=== PATIENT | male | born 1960 | race American Indian/Alaskan Native ===

== ENCOUNTER 2018-06-06 11:38 | Emergency (ER) | payer SELFPAY ==
--- NOTE | 2018-06-06 12:37 | Emergency Department Report ---
Chief Complaint: Extremity Injury, Lower Stated Complaint: (L) LEG PAIN/HBP Time Seen by Provider: 06/06/18 12:26 - HPI History of Present Illness: 58 yo AA M presents with b/l knee pain and pain to the left pinky toe, along with some swelling and redness to these areas. The patient thinks he has gout but has no history of this, just a pmhx of HTN. Has PCP at [facility] . No recent travel. Has not taken anything for symptoms prior to presentation. - ROS Review of Systems: Positive for redness and swelling and pain of the b/l knees and left pinky toe Negative for fever, N/V - Exam Vital Signs: Vital Signs 06/06/18 11:42 Temperature 98.9 F Pulse Rate 74 Respiratory 16 Rate Blood Pressure 155/93 O2 Sat by Pulse 100 Oximetry Physical Exam: B/l anterior knee swelling and redness with L > R. TTP to the b/l knees. Heart and lungs normal to auscultation. MSE screening note: Focused history and physical exam performed. Due to findings the following was ordered: Ordered CBC, BMP, Uric acid and b/l knee X-ray ED Disposition for MSE Condition: Stable Referrals: PRIMARY CARE, [Primary Care Provider] - 3-5 Days
[2018-06-06 13:11] LABS: Basophils # (Auto) 0.1 K/mm3 (0.0-0.1); Basophils % (Auto) 0.7 % (0.0-1.8); Eosinophils # (Auto) 0.1 K/mm3 (0.0-0.4); Eosinophils % (Auto) 0.7 % (0.0-4.3); Hemoglobin 14.1 gm/dl (11.8-15.2); Lymphocytes # (Auto) 1.8 K/mm3 (1.2-5.4); Lymphocytes % (Auto) 21.9 % (13.4-35.0); Mean Corpuscular HGB Conc 34 % (32-34); Mean Corpuscular Hemoglobin 32 pg (28-32); Mean Corpuscular Volume 95 fl (84-94); Monocytes # (Auto) 0.6 K/mm3 (0.0-0.8); Monocytes % (Auto) 7.8 % (0.0-7.3); Platelet Count 281 K/mm3 (140-440); Red Blood Count 4.33 M/mm3 (3.65-5.03); Red Cell Distribution Width 13.6 % (13.2-15.2)
[2018-06-06 14:14] LABS: BUN/Creatinine Ratio 13; Blood Urea Nitrogen 13 mg/dL (9-20); Calcium 9.5 mg/dL (8.4-10.2); Hemolysis Index 772; Uric Acid 9.1 mg/dL (3.5-7.6)
--- NOTE | 2018-06-06 14:24 | XRay Report ---
BILATERAL KNEES, 3 VIEWS History: Bilateral knee pain. Findings: Mild osteoarthritic changes are identified throughout both knees. There is no evidence for fracture, bone lesion or large joint effusion. The soft tissues are unremarkable. Impression: Mild osteoarthritis.
[2018-06-06] MEDS ORDERED: TORADOL IM ONE (15:08)
[2018-06-06] MEDS ORDERED: DECADRON IM ONE (15:08)
--- NOTE | 2018-06-06 15:16 | Emergency Department Report ---
ED Lower Extremity HPI - General Chief Complaint: Extremity Injury, Lower Stated Complaint: (L) LEG PAIN/HBP Time Seen by Provider: 06/06/18 12:26 Source: patient Mode of arrival: Ambulatory Limitations: No Limitations - History of Present Illness Initial Comments: This is a 58-year-old -[place] male who presents with bilateral knee pain for one week. Patient states pain started on the right knee and it improved slightly a few days ago. Patient states left knee pain is 8 out of 10 on pain scale and worse with ambulating and movement. He is now also having pain in left pinky toe with mild swelling and redness to these areas. Patient has a history of hypertension and hyperlipidemia. history of gout but admits to family history. Patient states he has been eating increased amount of seafood and drinking. Over the past 2 weeks and noticed symptoms were aggravated since then. Denies fevers, numbness or tingling, any recent injury. MD Complaint: knee injury (bilateral knee pain) Onset/Timin -: week(s) Injury: Knee: Left, Foot: Right (right fifth toe pain) Type of Injury: unknown Place: home Severity: moderate Severity scale (0 -10): 6 Improves With: nothing Worsens With: weight bearing, movement Associated Symptoms: swelling, able to partially bear weight, ambulatory. denies: snap/pop sensation, numbness, tingling, unable to bear weight Treatments Prior to Arrival: NSAIDS - Related Data Home Medications Medication Instructions Recorded Confirmed Last Taken Benicar HCT 40-12.5 mg 1 tab PO DAILY 06/06/18 06/06/18 06/06/18 Rosuvastatin (Nf) [Crestor] 5 mg PO DAILY 06/06/18 06/06/18 1 Day Ago ~06/05/18 Previous Rx's Medication Instructions Recorded Last Taken Type Colchicine 0.6 mg PO DAILY #14 capsule 06/06/18 Unknown Rx Indomethacin 50 mg PO Q8H #20 capsule 06/06/18 Unknown Rx Prednisone [predniSONE 10 mg 10 mg PO .TAPER #1 tab.ds.pk 06/06/18 Unknown Rx (6-Day Pack, 21 Tabs)] Allergies Allergy/AdvReac Type Severity Reaction Status Date / Time No Known Allergies Allergy Unverified 06/06/18 11:50 ED Review of Systems ROS: Stated complaint: (L) LEG PAIN/HBP Other details as noted in HPI Constitutional: denies: chills, fever Respiratory: denies: cough, shortness of breath, wheezing Cardiovascular: denies: chest pain, palpitations Gastrointestinal: denies: abdominal pain, nausea, diarrhea Musculoskeletal: arthralgia (bilateral knee pain and right fifth digit pain). denies: back pain, joint swelling Skin: denies: rash, lesions Neurological: denies: headache, weakness, paresthesias Psychiatric: denies: anxiety, depression ED Past Medical Hx - Past Medical History Previous Medical History?: Yes Hx Hypertension: Yes Additional medical history: Hyperlipidemia - Surgical History Past Surgical History?: Yes Additional Surgical History: Left knee scope 10 years ago - Social History Smoking Status: Never Smoker - Medications Home Medications: Home Medications Medication Instructions Recorded Confirmed Last Taken Type Benicar HCT 40-12.5 mg 1 tab PO DAILY 06/06/18 06/06/18 06/06/18 History Colchicine 0.6 mg PO DAILY #14 capsule 06/06/18 Unknown Rx Indomethacin 50 mg PO Q8H #20 capsule 06/06/18 Unknown Rx Prednisone [predniSONE 10 mg 10 mg PO .TAPER #1 tab.ds.pk 06/06/18 Unknown Rx (6-Day Pack, 21 Tabs)] Rosuvastatin (Nf) [Crestor] 5 mg PO DAILY 06/06/18 06/06/18 1 Day Ago History ~06/05/18 ED Physical Exam - General Limitations: No Limitations General appearance: alert, in no apparent distress, obese - Respiratory Respiratory exam: Present: normal lung sounds bilaterally. Absent: respiratory distress - Cardiovascular Cardiovascular Exam: Present: regular rate, normal rhythm. Absent: systolic murmur, diastolic murmur, rubs, gallop - GI/Abdominal GI/Abdominal exam: Present: soft, normal bowel sounds. Absent: organomegaly, mass - Expanded Lower Extremity Exam Left Hip exam: Present: normal inspection, full ROM Upper Leg exam: Present: normal inspection, full ROM Knee exam: Present: full ROM, swelling, pain w/ pronation/supination, full knee extension. Absent: abrasion, laceration, ecchymosis, deformity, crepidus, dislocation, erythema Lower Leg exam: Present: normal inspection, full ROM Ankle exam: Present: normal inspection, full ROM Foot/Toe exam: Present: normal inspection, full ROM Neuro vascular tendon exam: Present: no vascular compromise Gait: Positive: observed and limited by pain - Neurological Exam Neurological exam: Present: alert, oriented X3 - Psychiatric Psychiatric exam: Present: normal affect, normal mood - Skin Skin exam: Present: warm, dry, intact, normal color. Absent: rash ED Course Vital Signs 06/06/18 11:42 Temperature 98.9 F Pulse Rate 74 Respiratory 16 Rate Blood Pressure 155/93 O2 Sat by Pulse 100 Oximetry ED Lower Extremity MDM - Lab Data Result diagrams: 06/06/18 12:40 06/06/18 12:40 - Radiology Data Radiology results: report reviewed BILATERAL KNEES, 3 VIEWS History: Bilateral knee pain. Findings: Mild osteoarthritic changes are identified throughout both knees. There is no evidence for fracture, bone lesion or large joint effusion. The soft tissues are unremarkable. Impression: Mild osteoarthritis. - Medical Decision Making This is a 58 y.o. male that presents with bilateral knee pain and right 5th digit pain. Hx of HLD & HTN. Patient is stable and examined by me. Obtained BMP , CBC, and Uric acid. Uric acid elevated and all other labs unremarkable. Xray of left knee, dictated by radiologist. No acute signs of distress noted, Mild osteoarthritis. Given dexamethasone 8 mg IM and toradol 30 mg IM once in ER for gout. Discussed plan to start prednisone taper and indomethacin 50 mg po tid with patient. Given rx for colcochine 0.6 mg po daily #14 pending goodrx. Educated patient on low purine diet and given handout. Patient agrees to ED plan of care. Discharged home and follow up with PCP at [facility] in 3 days. Critical care attestation.: If time is entered above; I have spent that time in minutes in the direct care of this critically ill patient, excluding procedure time. ED Disposition Clinical Impression: Bilateral knee pain Qualifiers: Chronicity: acute Qualified Code(s): M25.561 - Pain in right knee; M25.562 - Pain in left knee Gout attack Qualifiers: Gout site: knee Gout etiology: idiopathic Laterality: left Qualified Code(s): M10.062 - Idiopathic gout, left knee Osteoarthritis Qualifiers: Osteoarthritis location: knee Osteoarthritis type: primary Laterality: left Qualified Code(s): M17.12 - Unilateral primary osteoarthritis, left knee Disposition: TO HOME OR SELFCARE Is pt being admited?: No Does the pt Need Aspirin: No Condition: Stable Instructions: Osteoarthritis (ED), Acute Gouty Arthritis (ED), Low Purine Diet (ED) Additional Instructions: Avoid foods that have a high purine content such as alcohol, organ meats, and seafood can cause higher risk of elevated uric acid and gout. Reduce intake of alcohol, especially beer, lowers the risk of gout. Reduce the intake of vegetables high in purines such as asparagus, spinach, and mushrooms. Dairy products reduce the risk of gout. Follow up with primary care provider in 2-3 days. Prescriptions: Colchicine 0.6 mg PO DAILY #14 capsule Indomethacin 50 mg PO Q8H #20 capsule Prednisone [predniSONE 10 mg (6-Day Pack, 21 Tabs)] 10 mg PO .TAPER #1 tab.ds.pk Referrals[facility] [Provider Group] - 3-5 Days [facility] [Outside] - 3-5 Days Forms: Work/School Release Form(ED) Time of Disposition: 15:26 Print Language: SPANISH
[2018-06-06 15:51] VITALS: BP 150/90
== END 2018-06-06 15:50 | disposition home or self-care (01) ==
LOC: ED 11:38
DX: M10.062 Idiopathic gout, left knee (principal); M17.12 Unilateral primary osteoarthritis, left knee; M25.561 Pain in right knee; I10 Essential (primary) hypertension; E78.5 Hyperlipidemia, unspecified
CPT/HCPCS: 36415; 73562; 80048; 84550; 85025; 96372; 99283; J1100; J1885

== ENCOUNTER 2018-11-26 09:18 | Emergency (ER) | payer SELFPAY ==
[2018-11-26 09:30] VITALS: BP 123/84
[2018-11-26] MEDS ORDERED: NORCO 5/325 PO ONE (11:00)
--- NOTE | 2018-11-26 11:00 | Emergency Department Report ---
ED Lower Extremity HPI - General Chief Complaint: Extremity Injury, Lower Stated Complaint: (L) KNEE PAIN/ANKLE Time Seen by Provider: 11/26/18 10:43 Source: patient Mode of arrival: Ambulatory Limitations: No Limitations - History of Present Illness Initial Comments: PT is a 58-year-old -[place] male who comes to the ER today 1 week after bumping his left knee with the car door. He states the knee has become swollen with shooting pains down towards his foot. He states that he does have arthritis. There is no abrasion or laceration. But there is generalized knee swelling. Patient states [id number] pain medicines are not helping. He has been using crutches from a previous injury. The knee is not warm or red -: days(s) (7) Injury: Knee: Left Type of Injury: blunt Place: home Severity: mild Improves With: NSAID Worsens With: movement Context: direct blow - Related Data Home Medications Medication Instructions Recorded Confirmed Last Taken Benicar HCT 40-12.5 mg 1 tab PO DAILY 06/06/18 06/06/18 06/06/18 Rosuvastatin (Nf) [Crestor] 5 mg PO DAILY 06/06/18 06/06/18 1 Day Ago ~06/05/18 Previous Rx's Medication Instructions Recorded Last Taken Type Colchicine 0.6 mg PO DAILY #14 capsule 09/18/18 Unknown Rx Indomethacin 50 mg PO Q8H #20 capsule 09/18/18 Unknown Rx methylPREDNISolone [Medrol] 4 mg PO DAILY #1 tab.ds.pk 11/26/18 Unknown Rx Allergies Allergy/AdvReac Type Severity Reaction Status Date / Time No Known Allergies Allergy Unverified 06/06/18 11:50 ED Review of Systems ROS: Stated complaint: (L) KNEE PAIN/ANKLE Other details as noted in HPI Comment: All other systems reviewed and negative Constitutional: denies: see HPI Eyes: denies: eye pain ENT: denies: throat pain Respiratory: denies: orthopnea Cardiovascular: denies: dyspnea on exertion Endocrine: denies: flushing Gastrointestinal: denies: nausea Genitourinary: denies: urgency Musculoskeletal: other (L KNEE PAIN). denies: back pain Skin: denies: lesions Neurological: denies: weakness Psychiatric: denies: depression Hematological/Lymphatic: denies: easy bleeding ED Past Medical Hx - Past Medical History Hx Hypertension: Yes Additional medical history: Hyperlipidemia, Gout - Surgical History Past Surgical History?: Yes Additional Surgical History: Left knee scope 10 years ago - Social History Smoking Status: Never Smoker Substance Use Type: None - Medications Home Medications: Home Medications Medication Instructions Recorded Confirmed Last Taken Type Benicar HCT 40-12.5 mg 1 tab PO DAILY 06/06/18 06/06/18 06/06/18 History Rosuvastatin (Nf) [Crestor] 5 mg PO DAILY 06/06/18 06/06/18 1 Day Ago History ~06/05/18 Colchicine 0.6 mg PO DAILY #14 capsule 09/18/18 Unknown Rx Indomethacin 50 mg PO Q8H #20 capsule 09/18/18 Unknown Rx methylPREDNISolone [Medrol] 4 mg PO DAILY #1 tab.ds.pk 11/26/18 Unknown Rx ED Physical Exam - General Limitations: No Limitations General appearance: alert - Head Head exam: Present: atraumatic - Eye Eye exam: Present: normal appearance, PERRL Pupils: Present: normal accommodation - ENT ENT exam: Present: normal exam - Neck Neck exam: Present: normal inspection - Respiratory Respiratory exam: Present: normal lung sounds bilaterally - Cardiovascular Cardiovascular Exam: Present: regular rate - GI/Abdominal GI/Abdominal exam: Present: soft, normal bowel sounds - Rectal Rectal exam: Present: deferred - Extremities Exam Extremities exam: Present: normal inspection, full ROM - Expanded Lower Extremity Exam Left Upper Leg exam: Present: normal inspection Knee exam: Present: full ROM (LIMITED WITH PAIN), tenderness, swelling, crepidus, effusion (NO ONE AREA FOR TAP HERE IN ED). Absent: abrasion, laceration, ecchymosis, deformity, dislocation, erythema, pain w/ pronation/supination, posterior draw sign, pain/laxity with valgus, pain/laxity with varus, full knee extension - Back Exam Back exam: Present: normal inspection - Neurological Exam Neurological exam: Present: alert, oriented X3 - Psychiatric Psychiatric exam: Present: normal affect, normal mood - Skin Skin exam: Present: warm, dry ED Course Vital Signs 11/26/18 09:26 Temperature 98.5 F Pulse Rate 100 H Respiratory 16 Rate Blood Pressure 123/84 O2 Sat by Pulse 98 Oximetry ED Lower Extremity MDM - Radiology Data Radiology results: report reviewed, image reviewed interpreted by me: NO FX - Medical Decision Making EFFUSION OF KNEEE IMMOBILIZER/CRUTCHES DC HOME WITH REFERRAL TO ORTHO FOR FURTHER EVAL PT DC WITH COPY OF IMAGES ON DISC - Differential Diagnosis RO FX Critical care attestation.: If time is entered above; I have spent that time in minutes in the direct care of this critically ill patient, excluding procedure time. ED Disposition Clinical Impression: Knee effusion, Knee pain, left, Osteoarthritis, Contusion Disposition: DC-01 TO HOME OR SELFCARE Is pt being admited?: No Does the pt Need Aspirin: No Condition: Stable Instructions: Osteoarthritis (ED), Knee Effusion (ED) Additional Instructions: ALTERNATE ICE AND WARM COMPRESSES KNEE IMMOBILIZER AND CRUTCHES ELEVATE LEG WHEN SITTING MOTRIN OR TYLENOL FOR PAIN IMMOB WILL DEC THE PAIN WELL FOLLOW UP WITH ORTHO [facility] REFERRAL BELOW MED ORDERED TODAY Prescriptions: methylPREDNISolone [Medrol] 4 mg PO DAILY #1 tab.ds.pk Referrals: ANSLEY GASCA MD [Staff Physician] - 3-5 Days Time of Disposition: 11:13
--- NOTE | 2018-11-26 11:07 | XRay Report ---
LEFT KNEE, 3 views: History: Trauma, pain, swelling Findings: Compared to 06/06/18. A moderate to large effusion is identified on the lateral image. Mild tibial spine spurring and retropatellar spurring are identified which appear unchanged. No evidence for fracture, bone lesion or osteochondral defect. IMPRESSION: Mild osteoarthritis. Moderate to large joint effusion. If internal derangement is suspected, MRI left knee without contrast would provide the most information.
[2018-11-26] MEDS ORDERED: DECADRON IM ONE (11:49)
[2018-11-26] MEDS ORDERED: DECADRON ONE (11:52)
== END 2018-11-26 12:04 | disposition home or self-care (01) ==
LOC: ED 09:18
DX: S80.02XA Contusion of left knee, initial encounter (principal); M17.12 Unilateral primary osteoarthritis, left knee; M25.462 Effusion, left knee; I10 Essential (primary) hypertension; M19.90 Unspecified osteoarthritis, unspecified site; E78.5 Hyperlipidemia, unspecified; W22.8XXA Striking against or struck by other objects, initial encounter; Y93.89 Activity, other specified; Y99.8 Other external cause status; Y92.019 Unspecified place in single-family (private) house as the place of occurrence of the external cause
CPT/HCPCS: 73562; 96372; 99283; J1100